=== PATIENT | female | born 1950 | race Caucasian/White ===

== ENCOUNTER → 2021-07-02 12:07 | Outpatient (BNVA) | payer MEDICARE, SELFPAY | PROVIDERS: Visit Provider Nurse Practitioner Family | DX: Z20.822 Contact with and (suspected) exposure to COVID-19 (principal) | CPT/HCPCS: 87635 ==

== ENCOUNTER → 2023-03-31 15:32 | Outpatient (BNVA) | payer MEDICARE, SELFPAY | PROVIDERS: Visit Provider Dermatology | DX: L82.0 Inflamed seborrheic keratosis (principal); L57.0 Actinic keratosis; L72.0 Epidermal cyst; D48.5 Neoplasm of uncertain behavior of skin; B07.8 Other viral warts | CPT/HCPCS: 17000; 17110; 69100; 99213 ==

== ENCOUNTER → 2023-04-27 09:58 | Outpatient (BNVA) | payer MEDICARE, SELFPAY | PROVIDERS: Visit Provider Nurse Practitioner Family | DX: L72.0 Epidermal cyst (principal); L91.8 Other hypertrophic disorders of the skin; D22.62 Melanocytic nevi of left upper limb, including shoulder; B07.8 Other viral warts; R58 Hemorrhage, not elsewhere classified; L53.8 Other specified erythematous conditions | CPT/HCPCS: 17110; 99213 ==

== ENCOUNTER → 2023-06-02 10:19 | Outpatient (BNVA) | payer MEDICARE, SELFPAY | PROVIDERS: Visit Provider Nurse Practitioner Family | DX: B07.0 Plantar wart (principal); B07.8 Other viral warts; L82.0 Inflamed seborrheic keratosis; L72.0 Epidermal cyst; L91.8 Other hypertrophic disorders of the skin; D22.62 Melanocytic nevi of left upper limb, including shoulder; L82.1 Other seborrheic keratosis | CPT/HCPCS: 17110; 99213 ==

== ENCOUNTER → 2023-06-08 09:37 | Outpatient (BNVA) | payer MEDICARE, SELFPAY | PROVIDERS: Visit Provider Podiatrist Foot & Ankle Surgery | DX: Q82.8 Other specified congenital malformations of skin (principal); G62.9 Polyneuropathy, unspecified | CPT/HCPCS: 17110; 99203 ==

== ENCOUNTER → 2023-07-02 10:07 | Outpatient (BNVA) | payer MEDICARE, SELFPAY | PROVIDERS: Visit Provider Nurse Practitioner Family | DX: B07.0 Plantar wart (principal); L91.8 Other hypertrophic disorders of the skin; D22.62 Melanocytic nevi of left upper limb, including shoulder; L82.1 Other seborrheic keratosis; L81.4 Other melanin hyperpigmentation | CPT/HCPCS: 10060; 17000; 17110; 99213 ==

== ENCOUNTER → 2023-08-03 09:57 | Outpatient (BNVA) | payer MEDICARE, SELFPAY | PROVIDERS: Visit Provider Nurse Practitioner Family | DX: B07.8 Other viral warts (principal); L91.8 Other hypertrophic disorders of the skin; L57.8 Other skin changes due to chronic exposure to nonionizing radiation; D22.4 Melanocytic nevi of scalp and neck; L81.4 Other melanin hyperpigmentation | CPT/HCPCS: 11200; 17110; 99213 ==

== ENCOUNTER → 2023-10-07 10:06 | Outpatient (BNVA) | payer MEDICARE, SELFPAY | PROVIDERS: Visit Provider Nurse Practitioner Family | DX: L57.8 Other skin changes due to chronic exposure to nonionizing radiation (principal); L82.1 Other seborrheic keratosis; L91.8 Other hypertrophic disorders of the skin; L82.0 Inflamed seborrheic keratosis; D22.4 Melanocytic nevi of scalp and neck; L81.4 Other melanin hyperpigmentation | CPT/HCPCS: 17110; 99213 ==

== ENCOUNTER → 2024-03-30 10:23 | Outpatient (BNVA) | payer MEDICARE, SELFPAY | PROVIDERS: Visit Provider Nurse Practitioner Family | DX: L57.8 Other skin changes due to chronic exposure to nonionizing radiation (principal); L82.1 Other seborrheic keratosis; L91.8 Other hypertrophic disorders of the skin; D22.4 Melanocytic nevi of scalp and neck; L81.4 Other melanin hyperpigmentation; D48.5 Neoplasm of uncertain behavior of skin | CPT/HCPCS: 11102; 99213 ==

== ENCOUNTER → 2024-04-18 09:36 | Outpatient (BNVA) | payer MEDICARE, SELFPAY | PROVIDERS: Visit Provider Dermatology | DX: C44.319 Basal cell carcinoma of skin of other parts of face (principal) | CPT/HCPCS: 13132; 17311 ==

== ENCOUNTER → 2024-09-26 10:41 | Outpatient (BNVA) | payer MEDICARE, SELFPAY | PROVIDERS: Visit Provider Nurse Practitioner Family | DX: L90.5 Scar conditions and fibrosis of skin (principal); L57.8 Other skin changes due to chronic exposure to nonionizing radiation; L82.1 Other seborrheic keratosis; L91.8 Other hypertrophic disorders of the skin; D22.4 Melanocytic nevi of scalp and neck; L81.4 Other melanin hyperpigmentation; Z08 Encounter for follow-up examination after completed treatment for malignant neoplasm; Z85.828 Personal history of other malignant neoplasm of skin | CPT/HCPCS: 99213 ==

== ENCOUNTER → 2025-03-07 10:30 | Outpatient (BNVA) | payer MEDICARE, SELFPAY | PROVIDERS: Visit Provider Nurse Practitioner Family | DX: L72.0 Epidermal cyst (principal); L82.1 Other seborrheic keratosis; D22.4 Melanocytic nevi of scalp and neck; L81.4 Other melanin hyperpigmentation; L57.8 Other skin changes due to chronic exposure to nonionizing radiation; L90.5 Scar conditions and fibrosis of skin; Z08 Encounter for follow-up examination after completed treatment for malignant neoplasm; Z85.828 Personal history of other malignant neoplasm of skin | CPT/HCPCS: 99213 ==